=== PATIENT | male | born 1945 | race Caucasian/White ===

== ENCOUNTER 2018-03-01 20:44 | Emergency (ER) | payer OTHER, MEDICARE ==
[~2018-03-01] VITALS: Ht 170.2 cm; Wt 77.1 kg
[2018-03-01] MEDS ORDERED: METOPROLOL SUCC50 M2 PO (21:28)
[2018-03-01] MEDS ORDERED: PRAVASTATIN SOD10 M2 PO (21:28)
[2018-03-01] MEDS ORDERED: CLARINEX5 M1 PO (21:28)
[2018-03-01] MEDS ORDERED: FLONASE ALLERG9.9 ML NASB (21:29)
[2018-03-01] MEDS ORDERED: SERTRALINE HCL100 MG PO (21:29)
[2018-03-01] MEDS ORDERED: PROAIR HFA8.5 GM INH (21:30)
--- NOTE | 2018-03-01 22:40 | RADIOLOGY REPORT ---
EXAMINATION: XR PORTABLE CHEST CLINICAL INFORMATION: Chest pain COMPARISON: None TECHNIQUE: Portable AP, 80 degrees upright view of the chest was obtained. Lordotic positioning FINDINGS: Consolidation in the left lower lobe is somewhat streaky and may represent atelectasis. Minimal plate atelectasis at the lateral right base. No effusion or pneumothorax. Heart and mediastinum grossly normal for technique. Severe idiopathic scoliosis. IMPRESSION: Streaky opacities at the left base on limited lordotic radiograph.
[2018-03-01 22:42] LABS: ABSOLUTE BASOPHIL COUNT 0 /CUMM (0.0-0.2); ABSOLUTE EOSINOPHIL COUNT 0.1 /CUMM (0.0-0.7); ABSOLUTE GRANULOCYTE CT 4.9 /CUMM (1.4-6.5); ABSOLUTE LYMPH COUNT 2.6 /CUMM (1.2-3.4); ABSOLUTE MONOCYTE COUNT 0.7 /CUMM (0.10-0.60); BASOPHIL % 0.3 % (0.0-2.0); EOSINOPHIL % 1.1 % (0-5); GRANULOCYTE % 59.3 % (42.2-75.2); HEMATOCRIT 39.9 % (42-52); MEAN CORPUSCULAR HGB 30.1 PG (27.0-31.0); MEAN CORPUSCULAR HGB CONC 33.8 G/DL (33.0-37.0); MEAN CORPUSCULAR VOLUME 89.1 FL (80.0-94.0); PLATELET COUNT 213 /CUMM (130-400); RBC DISTRIBUTION WIDTH 13.3 % (11.5-14.5); RED BLOOD CELL CT 4.48 /CUMM (4.70-6.10); WHITE BLOOD CELL COUNT 8.3 /CUMM (4.8-10.8)
--- NOTE | 2018-03-01 22:45 | ED CARDIAC/CP/PALPITATIONS ---
History of Present Illness General Chief Complaint: General Adult Stated Complaint: RIB PAIN Source: patient Exam Limitations: no limitations Vital Signs & Intake/Output Vital Signs & Intake/Output Vital Signs Date Time Temp Pulse Resp B/P B/P Pulse O2 O2 Flow FiO2 Mean Ox Delivery Rate 03/02 0245 97.9 58 16 148/68 96 Room Air 03/02 0119 97.8 56 16 153/72 95 Room Air 03/01 2132 Room Air 03/01 2100 96.1 86 18 155/91 96 Room Air ED Intake and Output 03/02 0000 03/01 1200 Intake Total Output Total Balance Patient 170 lb Weight Allergies Coded Allergies: ciprofloxacin (PER PT MADE ME FEEL FUNNY 03/01/18) doxycycline (UNKNOWN 03/01/18) latex (MOUTH SORES 03/01/18) Reconcile Medications Albuterol Sulfate (Proair Hfa) 90 MCG HFA.AER.AD 2 PUF INH AD PRN RESP. ( Reported) Desloratadine (Clarinex) 5 MG TABLET 1 TAB PO DAILY ALLERGIES (Reported) Fluticasone Propionate (Flonase Allergy Relief) 50 MCG/ACTUATION SPRAY.SUSP 1- 2 SPRAY NASB PRN ALLERGIES (Reported) Metoprolol Succinate 50 MG TAB.ER.24H 1 TAB PO DAILY HEART/BP (Reported) Pravastatin Sodium 10 MG TABLET 1 TAB PO QPM CHOLESTEROL (Reported) Sertraline HCl 100 MG TABLET 1 TAB PO DAILY MENTAL HEALTH (Reported) Triage Note: PT TO TRIAGE WITH PAIN TO L SIDE RIGHT UNDER RIB CAGE THAT BEGAN TODAY AFTER EATING A MILKY WAY BAR AND STARTED COUGHING. SL PINS AND NEEDLES IN L HAND PER PT. 02 SAT 96% RA. PT USED ICE AT HOME, DENIES HOME MEDICATION. Triage Nurses Notes Reviewed? yes HPI: 73-year-old white male with history of hypertension, hyperlipidemia presents with onset of left-sided sharp chest pain while on the train in [place] earlier today at around 4 PM. He reports the pain as sharp and increased with movement. He denies any associated diaphoresis, nausea, fever but did admit to a slight cough. He noticed the onset of pain after he felt he choked on a candy bar. He reports having had a previously negative cardiac stress test. He denies any smoking or rash. He denies any other trauma. He reports his pain level as an 8 /10 in severity. (Miriam Chawla MD) Past History Travel History Traveled to [place] past 21 day No Medical History Any Pertinent Medical History? see below for history Neurological: NONE EENT: NONE Cardiovascular: hypertension, hyperlipidemia Respiratory: NONE Gastrointestinal: NONE Hepatic: NONE Renal: NONE Musculoskeletal: NONE Psychiatric: NONE Endocrine: NONE Blood Disorders: NONE Cancer(s): NONE PARTS CATALOGER/Reproductive: NONE Surgical History Surgical History: non-contributory Psychosocial History What is your primary language Brazilian Tobacco Use: Never used Family History Hx Contributory? No (Miriam Chawla MD) Review of Systems Review of Systems Constitutional: Reports: no symptoms. Cardiovascular: Denies: see HPI. All Other Systems: Reviewed and Negative (Miriam Chawla MD) Physical Exam Physical Exam General Appearance: well developed/nourished, no apparent distress, alert, awake Head: atraumatic, normal appearance Eyes: Bilateral: PERRL, EOMI. Ears, Nose, Throat: normal pharynx, normal ENT inspection, hearing grossly normal Neck: normal inspection, supple Respiratory: normal breath sounds, no respiratory distress, quiet respiration, lungs clear, chest tender over the left 6th ICS along the anterior axillary line without appreciable rash noted. Cardiovascular: regular rate/rhythm Peripheral Pulses: 4+ carotid (R), 4+ carotid (L), 4+ radial (R), 4+ radial (L), 4+ femoral (R), 4+ femoral (L) Gastrointestinal: normal bowel sounds, soft, non-tender, no organomegaly Back: normal inspection Extremities: normal inspection, normal capillary refill, normal range of motion Neurologic/Psych: no motor/sensory deficits, awake, alert, oriented x 3, normal mood/affect Core Measures ACS in differential dx? Yes CVA/TIA Diagnosis No Sepsis Present: No Sepsis Focused Exam Completed? No (Miriam Chawla MD) Physical Exam Respiratory: left lateral rib cage tenderness to palpation, mild. Cardiovascular: regular rate/rhythm (Raf COLIN,Carlos Blackwell) Progress Plan of Care: Orders Procedure Date/time Status TROPONIN LEVEL 03/02 010 Complete EKG 03/02 010 Active Add-on Test (ER Only) 03/01 225 Active D-DIMER 03/01 223 Complete TROPONIN LEVEL 03/01 2218 Complete MAGNESIUM 03/01 2218 Complete COMPREHENSIVE METABOLIC PANEL 03/01 2218 Complete CHOLESTEROL 03/01 2218 Complete CBC WITHOUT DIFFERENTIAL 03/01 2218 Complete EKG 03/01 2218 Active Laboratory Tests 03/02/18 0112: Troponin I < 0.01 03/01/182234: Anion Gap 8, Estimated GFR > 60, BUN/Creatinine Ratio 21.0, Glucose 100 H, Calcium 9.5, Magnesium 1.9, Total Bilirubin 0.5, AST 22, ALT 43, Alkaline Phosphatase 64, Troponin I < 0.01, Total Protein 6.7, Albumin 4.0, Globulin 2.7, Albumin/Globulin Ratio 1.5, Cholesterol 147, D-Dimer High Sensitivty < 200, CBC w Diff NO MAN DIFF REQ, RBC 4.48 L, MCV 89.1, MCH 30.1, MCHC 33.8, RDW 13.3, MPV 8.0, Gran % 59.3, Lymphocytes % 31.0, Monocytes % 8.3, Eosinophils % 1.1, Basophils % 0.3, Absolute Granulocytes 4.9, Absolute Lymphocytes 2.6, Absolute Monocytes 0.7 H, Absolute Eosinophils 0.1, Absolute Basophils 0 Comments: Patient signed out to Dr. Carbone on 03/01/2018 at 11 PM to reevaluate the patient and decide on final disposition. ([place] COLIN,Miriam) Differential Diagnosis: chest wall pain, costochondritis vs other. Diagnostic Imaging: Viewed by Me: Radiology Read. Discussed w/RAD: Radiology Read. CXR Impression: PATIENT: BRUCE LIM PRESENT AGE: 73 PATIENT ACCOUNT NO: [id number] : 43 LOCATION: [facility] ORDERING PHYSICIAN: Miriam Chawla MD SERVICE DATE: 03/01/18 EXAM TYPE: RAD - XRY-PORTABLE CHEST XRAY EXAMINATION: XR PORTABLE CHEST CLINICAL INFORMATION: Chest pain COMPARISON: None TECHNIQUE: Portable AP, 80 degrees upright view of the chest was obtained. Lordotic positioning FINDINGS: Consolidation in the left lower lobe is somewhat streaky and may represent atelectasis. Minimal plate atelectasis at the lateral right base. No effusion or pneumothorax. Heart and mediastinum grossly normal for technique. Severe idiopathic scoliosis. IMPRESSION: Streaky opacities at the left base on limited lordotic radiograph. DICTATED BY: Min Farley MD DATE/TIME DICTATED:03/01/182234 TUBE MOLDER FIBERGLASS: EMILIE DATE/TIME TRANSCRIBED:03/01/182234 CONFIDENTIAL, DO NOT COPY WITHOUT APPROPRIATE AUTHORIZATION. <Electronically signed in Other Vendor System> SIGNED BY: Min Farley MD 03/01/182239 Initial ED EKG: sinus, no acute changes Repeat EKG: unchanged (Raf COLIN,Carlos Blackwell) Departure Departure Condition: Stable Referrals: Unknown (PCP/Family) Departure Forms: Customer Survey General Discharge Information ([place] COLIN,Miriam) Departure Disposition: HOME OR SELF CARE Clinical Impression Primary Impression: Chest pain Comments pt signed out to me.... trop neg x 2, ekg benign x 2. pt feels comfortable going home. pt referred to cards. counseled regarding warning signs. pt has low heart score pt referred to cards. (Raf COLIN,Carlos Blackwell) Critical Care Note Critical Care Note Critical Care Time: non-applicable (Raf COLIN,Carlos Blackwell)
[2018-03-02 02:45] VITALS: BP 148/68
== END 2018-03-02 02:45 ==
LOC: ERH 20:44
PROVIDERS: Emergency Medicine
DX: R07.89 Other chest pain (principal); I10 Essential (primary) hypertension; E78.5 Hyperlipidemia, unspecified
CPT/HCPCS: 71045; 93005; 93010